=== PATIENT | female | born 1960 | race African-American/Black ===

== ENCOUNTER 2018-08-09 10:13 | Inpatient (IN) | payer MEDICAID ==
[~2018-08-09] VITALS: Ht 157.5 cm; Wt 94.8 kg
[2018-08-09 14:12] LABS: BASOPHILS % 0.8 % (0.0-2.0); EOSINOPHILS % 0.3 % (0.0-5.0); HEMATOCRIT. 40.5 % (36.0-48.0); HEMOGLOBIN. 12.8 g/dL (12.0-16.0); LYMPHOCYTES % 23.5 % (20.0-50.0); MEAN CORPUSCULAR HEMOGLOBIN 21.3 pg (28.0-32.0); MEAN CORPUSCULAR VOLUME 67.7 fL (81.0-99.0); MEAN PLATELET VOLUME 9.5 fl (7.4-10.4); MONOCYTES % 5.4 % (2.0-8.0); PLATELET 331 x1000/uL (130-400); RED BLOOD CELL COUNT 5.98 mill/uL (4.2-5.4); RED CELL DISTRIBUTION WIDTH 17.1 % (11.6-14.6)
[2018-08-09] MEDS ORDERED: SODIUM CHLORIDE 0.9% 250 ML IV ONE (14:15)
[2018-08-09 14:30] LABS: PLATELET ESTIMATE NORMAL
[2018-08-09] MEDS ORDERED: SODIUM CHLORIDE 0.9% 500 ML IV ONE (15:30)
[2018-08-09] MEDS ORDERED: LIDOCAINE HCL 1% 20ML VIAL (Pyxis) INJ ONE (15:42)
[2018-08-09] MEDS ORDERED: DOPAMINE 400MG/250ML PREMIX 250 ML IV ONE (16:15)
[2018-08-09 16:37] LABS: CHLORIDE 106 mEq/L (98-107)
[2018-08-09] MEDS ORDERED: ONDANSETRON HCL 4MG/2ML INJ IV ONE (17:45)
[2018-08-09] MEDS ORDERED: NOREPINEPHRINE 4 MG in DEXT 5% WATER 246 ML IV ONE (17:45)
[2018-08-09] MEDS ORDERED: GUAIFENESIN 200MG/10ML SUGAR FREE UDC PO PRN (19:15)
[2018-08-09] MEDS ORDERED: CLONIDINE 0.1MG TABLET PO PRN (19:15)
[2018-08-09] MEDS ORDERED: MAGNESIUM/ALUMINUM HYDROXIDE/SIMETHICONE 30ML UDC PO PRN (19:15)
[2018-08-09] MEDS ORDERED: HYDROCODONE/ACETAMINOPHEN 10/325MG TABLET PO PRN (19:15)
[2018-08-09] MEDS ORDERED: ONDANSETRON HCL 4MG/2ML INJ IV PRN (19:15)
[2018-08-09] MEDS ORDERED: DOCUSATE SODIUM 100MG CAPSULE PO PRN (19:15)
[2018-08-09] MEDS ORDERED: HYDRALAZINE 20MG/ML VIAL IV PRN (19:15)
[2018-08-09] MEDS ORDERED: IPRATROPIUM/ALBUTEROL 0.5-3(2.5)MG/3ML NEB INH PRN (19:15)
[2018-08-09] MEDS ORDERED: LORAZEPAM 2MG/ML CPJ IV PRN (19:15)
[2018-08-09] MEDS ORDERED: ACETAMINOPHEN 325MG TABLET PO PRN (19:15)
[2018-08-09] MEDS ORDERED: HYDROMORPHONE HCL/PF 2MG/ML CPJ IV PRN (19:15)
[2018-08-09] MEDS ORDERED: NOREPINEPHRINE 4MG/250ML PMX 250 ML IV NR (19:30)
[2018-08-09] MEDS ORDERED: DOPAMINE 400MG PREMIX 250ML IV PRN (21:45)
[2018-08-09] MEDS: SODIUM CHLORIDE 0.9% INJ 3ML FLUSH IVF SCH (22:00)
[2018-08-09] MEDS ORDERED: LEVOFLOXACIN 500MG PREMIX 100 ML IV NR (22:45)
[2018-08-09 23:02] LABS: CLARITY URINE CLOUDY (CLEAR); COLOR URINE YELLOW (YELLOW); KETONES URINE NEGATIVE (NEGATIVE); LEUKOCYTE ESTERASE URINE 2+ (NEGATIVE); NITRITE URINE NEGATIVE (NEGATIVE); OCCULT BLOOD URINE 2+ (NEGATIVE); PROTEIN URINE 1+ (NEGATIVE); UROBILINOGEN URINE 0.2 E.U./dL (0.2-1.0)
[2018-08-09] MEDS: ENOXAPARIN 30MG/0.3ML SYR SUBCUT SCH (23:11)
[2018-08-10] VITALS (29 sets, daily range): BP systolic 74–115; BP diastolic 20–78
[2018-08-10 00:34] LABS: CREATINE KINASE 84 IU/L (26-192)
[2018-08-10 00:35] LABS: CREATINE KINASE MB FRACTION < 1.0 ng/mL (0.5-3.6)
[2018-08-10] MEDS ORDERED: NOREPINEPHRINE 4MG/250ML PMX 250 ML IV PRN (01:00)
[2018-08-10] MEDS: SODIUM CHLORIDE 0.9% INJ 3ML FLUSH IVF SCH ×3 (06:00→22:00)
[2018-08-10 06:20] LABS: BASOPHILS % 0.5 % (0.0-2.0); EOSINOPHILS % 0.3 % (0.0-5.0); HEMATOCRIT. 42.4 % (36.0-48.0); HEMOGLOBIN. 13.4 g/dL (12.0-16.0); MEAN CORPUSCULAR HEMOGLOBIN 21.3 pg (28.0-32.0); MEAN CORPUSCULAR VOLUME 67.5 fL (81.0-99.0); MEAN PLATELET VOLUME 9.2 fl (7.4-10.4); MONOCYTES % 9.6 % (2.0-8.0); NEUTROPHILS % 65.6 % (40.0-76.0); PLATELET 300 x1000/uL (130-400); RED BLOOD CELL COUNT 6.27 mill/uL (4.2-5.4); RED CELL DISTRIBUTION WIDTH 16.9 % (11.6-14.6)
[2018-08-10 06:23] LABS: CHLORIDE 108 mEq/L (98-107)
[2018-08-10 06:34] LABS: CREATINE KINASE MB FRACTION 1.5 ng/mL (0.5-3.6); LDL CHOLESTEROL 65 mg/dL (5-100)
[2018-08-10 06:35] LABS: CREATINE KINASE 98 IU/L (26-192)
[2018-08-10 06:36] LABS: HDL CHOLESTEROL 44 mg/dL (40-59)
[2018-08-10] MEDS ORDERED: MAGNESIUM/ALUMINUM HYDROXIDE/SIMETHICONE 30ML UDC PO PRN (08:45)
[2018-08-10] MEDS ORDERED: CLONIDINE 0.1MG TABLET PO PRN (08:45)
[2018-08-10] MEDS ORDERED: HYDROCODONE/ACETAMINOPHEN 5/325MG TABLET PO PRN (08:45)
[2018-08-10] MEDS ORDERED: NA PHOS,M-B/NA PHOS,DI-BA ENEMA 118ML PR PRN (08:45)
[2018-08-10] MEDS ORDERED: HYDROMORPHONE HCL/PF 2MG/ML CPJ IV PRN (08:45)
[2018-08-10] MEDS ORDERED: ACETAMINOPHEN 325MG TABLET PO PRN (08:45)
[2018-08-10] MEDS ORDERED: ENOXAPARIN 40MG/0.4ML SYR SUBCUT SCH (08:45)
[2018-08-10] MEDS ORDERED: LORAZEPAM 2MG/ML CPJ IV PRN (08:45)
[2018-08-10] MEDS ORDERED: GUAIFENESIN 200MG/10ML SUGAR FREE UDC PO PRN (08:45)
[2018-08-10] MEDS ORDERED: ASPIRIN 81MG EC TABLET PO SCH (09:00)
[2018-08-10] MEDS ORDERED: SODIUM CHLORIDE 0.9% 1,000 ML IV SCH (09:30)
[2018-08-10] MEDS ORDERED: CLONIDINE 0.3MG TABLET PO PRN (09:30)
[2018-08-10 11:06] LABS: BG BASE EXCESS -17.5 mmol/L (-2.0-2.0); BG CARBOXYHEMOGLOBIN 0.6 % (0.5-1.5); BG DEOXYHEMOGLOBIN 3.2 % (0.0-5.0); BG FRACTION INSPIRED OXYGEN 21; BG HCO3 ACT 9.3 mmol/L (22.0-26.0); BG METHEMOGLOBIN 0.5 % (0.0-1.5); BG OXYGEN SATURATION 96.8 % (92.0-98.5); BG OXYHEMOGLOBIN 95.7 % (94.0-97.0); BG PCO2 25.7 mmHg (35.0-45.0); BG PH 7.176 (7.350-7.450); BG PO2 103.9 mmHg (75.0-100.0); BG SAMPLE SITE RIGHT BRACHIAL; BG TOTAL HEMOGLOBIN 13.1 g/dL (12.0-18.0); BG VENT MODE ROOM AIR
[2018-08-10] MEDS ORDERED: NOREPINEPHRINE 4 MG in DEXT 5% WATER 246 ML IV PRN ×2 (13:00→18:00)
[2018-08-10] MEDS ORDERED: PHENYLEPHRINE 40 MG in DEXT 5% WATER 246 ML IV PRN (13:45)
[2018-08-10] MEDS: PHENYLEPHRINE 40 MG in DEXT 5% WATER 246 ML IV PRN ×2 (15:28→18:46)
[2018-08-10] MEDS ORDERED: LIDOCAINE HCL/PF 1% 2ML VIAL ONE (15:47)
[2018-08-10 15:59] LABS: BG BASE EXCESS -14.8 mmol/L (-2.0-2.0); BG CARBOXYHEMOGLOBIN 0.4 % (0.5-1.5); BG DEOXYHEMOGLOBIN 3.4 % (0.0-5.0); BG FRACTION INSPIRED OXYGEN 21; BG HCO3 ACT 11.8 mmol/L (22.0-26.0); BG METHEMOGLOBIN 0.3 % (0.0-1.5); BG OXYGEN SATURATION 96.6 % (92.0-98.5); BG OXYHEMOGLOBIN 95.9 % (94.0-97.0); BG PCO2 30.1 mmHg (35.0-45.0); BG PO2 95.5 mmHg (75.0-100.0); BG SAMPLE SITE RIGHT BRACHIAL; BG TOTAL HEMOGLOBIN 12.8 g/dL (12.0-18.0); BG VENT MODE ROOM AIR
[2018-08-10] MEDS ORDERED: SODIUM BICARBONATE 8.4% 1 MEQ/ML 50ML SYR IV NR (16:26)
[2018-08-10] MEDS ORDERED: CARVEDILOL 3.125 MG TABLET PO SCH (17:00)
[2018-08-10] MEDS: ASPIRIN 81MG EC TABLET PO SCH (18:23)
[2018-08-10] MEDS: DOCUSATE SODIUM 100MG CAPSULE PO PRN (18:23)
[2018-08-10] MEDS ORDERED: SODIUM BICARBONATE 100 MEQ in SODIUM CHLORIDE 0.45% 1,000 ML IV SCH (18:30)
[2018-08-10] MEDS ORDERED: AMIODARONE HCL 900 MG in DEXT 5% WATER 500 ML IV SCH (18:30)
[2018-08-10] MEDS: DIPHENHYDRAMINE 50MG/ML VIAL IV PRN (19:01)
[2018-08-10] MEDS ORDERED: LEVOFLOXACIN 500MG PREMIX 100 ML IV SCH (19:15)
[2018-08-10] MEDS: AMIODARONE HCL 900 MG in DEXT 5% WATER 500 ML IV PRN (19:33)
[2018-08-10] MEDS ORDERED: PHENYLEPHRINE 80 MG in DEXT 5% WATER 500 ML IV PRN (20:00)
[2018-08-10 20:31] LABS: *AMPHETAMINES SCREEN URINE NEGATIVE (NEGATIVE); *BARBITURATES SCREEN URINE NEGATIVE (NEGATIVE); *BENZODIAZEPINES SCREEN URINE NEGATIVE (NEGATIVE); *COCAINE SCREEN URINE NEGATIVE (NEGATIVE); METHADONE URINE SCREEN NEGATIVE (NEGATIVE); OPIATES URINE SCREEN PRESUMTIVE POSITIVE (NEGATIVE); PHENCYCLIDINE URINE SCREEN NEGATIVE (NEGATIVE)
[2018-08-10 20:32] LABS: CANNABINOID URINE SCREEN NEGATIVE (NEGATIVE)
[2018-08-10] MEDS: ENOXAPARIN 30MG/0.3ML SYR SUBCUT SCH (22:45)
[2018-08-11] VITALS (94 sets, daily range): BP systolic 83–119; BP diastolic 37–79
[2018-08-11] MEDS: SODIUM BICARBONATE 100 MEQ in SODIUM CHLORIDE 0.45% 1,000 ML IV SCH ×2 (05:00→09:32)
[2018-08-11 05:44] LABS: BASOPHILS % 0.5 % (0.0-2.0); EOSINOPHILS % 0.6 % (0.0-5.0); HEMATOCRIT. 36.8 % (36.0-48.0); HEMOGLOBIN. 11.7 g/dL (12.0-16.0); LYMPHOCYTES % 34.2 % (20.0-50.0); MEAN CORPUSCULAR HEMOGLOBIN 21.2 pg (28.0-32.0); MEAN CORPUSCULAR VOLUME 66.3 fL (81.0-99.0); MEAN PLATELET VOLUME 9.2 fl (7.4-10.4); MONOCYTES % 12.8 % (2.0-8.0); NEUTROPHILS % 51.9 % (40.0-76.0); PLATELET 314 x1000/uL (130-400); RED BLOOD CELL COUNT 5.55 mill/uL (4.2-5.4); RED CELL DISTRIBUTION WIDTH 16.5 % (11.6-14.6)
[2018-08-11] MEDS: SODIUM CHLORIDE 0.9% INJ 3ML FLUSH IVF SCH ×3 (05:54→22:49)
[2018-08-11 06:24] LABS: CHLORIDE 111 mEq/L (98-107)
[2018-08-11 06:32] LABS: HDL CHOLESTEROL 45 mg/dL (40-59); LDL CHOLESTEROL 63 mg/dL (5-100)
[2018-08-11 06:33] LABS: T4 FREE 1.05 ng/dL (0.76-1.46)
[2018-08-11] MEDS ORDERED: KCL 20MEQ/100ML PREMIX 100 ML IV ONE ×2 (07:15→09:30)
[2018-08-11] MEDS: PHENYLEPHRINE 80 MG in DEXT 5% WATER 500 ML IV PRN ×3 (07:30→22:50)
[2018-08-11 08:55] LABS: BG BASE EXCESS -8.3 mmol/L (-2.0-2.0); BG DEOXYHEMOGLOBIN 3.2 % (0.0-5.0); BG HCO3 ACT 16.6 mmol/L (22.0-26.0); BG METHEMOGLOBIN 0.3 % (0.0-1.5); BG OXYGEN SATURATION 96.8 % (92.0-98.5); BG OXYHEMOGLOBIN 95.5 % (94.0-97.0); BG PCO2 32.4 mmHg (35.0-45.0); BG PH 7.328 (7.350-7.450); BG PO2 95.2 mmHg (75.0-100.0); BG SAMPLE SITE RIGHT BRACHIAL; BG TOTAL HEMOGLOBIN 12.2 g/dL (12.0-18.0); BG VENT MODE ROOM AIR
[2018-08-11] MEDS ORDERED: POTASSIUM CHLORIDE INJ 60 MEQ in DEXT 5% WATER 500 ML IV NR (09:00)
[2018-08-11] MEDS: AMIODARONE HCL 900 MG in DEXT 5% WATER 500 ML IV PRN (09:33)
[2018-08-11] MEDS: ASPIRIN 81MG EC TABLET PO SCH (09:33)
[2018-08-11] MEDS: DOCUSATE SODIUM 100MG CAPSULE PO PRN (09:33)
[2018-08-11] MEDS ORDERED: LIDOCAINE HCL/PF 1% 2ML VIAL ONE (15:46)
[2018-08-11] MEDS: ENOXAPARIN 30MG/0.3ML SYR SUBCUT SCH (22:49)
[2018-08-11] MEDS ORDERED: LEVOFLOXACIN 250MG PREMIX 50 ML IV SCH (23:00)
[2018-08-12] VITALS (96 sets, daily range): BP systolic 71–138; BP diastolic 28–79
[2018-08-12] MEDS: IPRATROPIUM/ALBUTEROL 0.5-3(2.5)MG/3ML NEB INH PRN ×2 (00:11→17:30)
[2018-08-12] MEDS: SODIUM BICARBONATE 100 MEQ in SODIUM CHLORIDE 0.45% 1,000 ML IV SCH (01:52)
[2018-08-12 05:34] LABS: BASOPHILS % 0.9 % (0.0-2.0); EOSINOPHILS % 0.9 % (0.0-5.0); HEMATOCRIT. 35.1 % (36.0-48.0); HEMOGLOBIN. 11.3 g/dL (12.0-16.0); MEAN CORPUSCULAR HEMOGLOBIN 21.1 pg (28.0-32.0); MEAN CORPUSCULAR VOLUME 65.6 fL (81.0-99.0); MEAN PLATELET VOLUME 9.3 fl (7.4-10.4); MONOCYTES % 10.5 % (2.0-8.0); NEUTROPHILS % 48.7 % (40.0-76.0); PLATELET 327 x1000/uL (130-400); RED BLOOD CELL COUNT 5.35 mill/uL (4.2-5.4); RED CELL DISTRIBUTION WIDTH 16.8 % (11.6-14.6)
[2018-08-12] MEDS: SODIUM CHLORIDE 0.9% INJ 3ML FLUSH IVF SCH ×3 (05:42→21:51)
[2018-08-12 05:44] LABS: PHOSPHORUS 1.9 mg/dL (2.5-4.9)
[2018-08-12] MEDS: PHENYLEPHRINE 80 MG in DEXT 5% WATER 500 ML IV PRN ×3 (06:23→22:43)
[2018-08-12] MEDS: DEXT 5%/0.45% NACL 1000ML 1,000 ML IV SCH ×2 (06:34→20:23)
[2018-08-12] MEDS ORDERED: POTASSIUM CHLORIDE 20MEQ TABLET SR PO SCH (07:15)
[2018-08-12] MEDS ORDERED: ASPI-1158 MT (07:25)
[2018-08-12] MEDS ORDERED: COR3 MT (07:27)
[2018-08-12] MEDS ORDERED: FURO-152 MT (07:27)
[2018-08-12] MEDS ORDERED: POTA20TA82 MT (07:30)
[2018-08-12] MEDS ORDERED: POTASSIUM PHOS,M-BASIC-D-BASIC 15 MMOL in DEXT 5% WATER 245 ML IV NR (08:00)
[2018-08-12] MEDS ORDERED: MAGNESIUM 2 G PREMIX 50 ML IV NR (08:00)
[2018-08-12] MEDS ORDERED: POTASSIUM CHLORIDE INJ 60 MEQ in DEXT 5% WATER 500 ML IV ONE (08:00)
[2018-08-12] MEDS: ASPIRIN 81MG EC TABLET PO SCH (08:20)
[2018-08-12] MEDS: DOCUSATE SODIUM 100MG CAPSULE PO PRN (08:20)
[2018-08-12] MEDS: ONDANSETRON HCL 4MG/2ML INJ IV PRN (08:43)
[2018-08-12] MEDS ORDERED: BISACODYL 5MG TABLET PO PRN (11:45)
[2018-08-12] MEDS: DIPHENHYDRAMINE 50MG/ML VIAL IV PRN (12:35)
[2018-08-12] MEDS ORDERED: LEVO25TA7 MT (14:29)
[2018-08-12] MEDS ORDERED: QUET300T2 MT (15:24)
[2018-08-12] MEDS ORDERED: SPIR25TA6 MT (15:27)
[2018-08-12] MEDS ORDERED: LINA1TAB5 MT (15:32)
[2018-08-12] MEDS ORDERED: UMEC1DIS IH (15:44)
[2018-08-12] MEDS ORDERED: FLUT15.88 BOTHNSTRLS (16:13)
[2018-08-12] MEDS ORDERED: SACU1TAB MT (16:15)
[2018-08-12] MEDS ORDERED: LEVOFLOXACIN 250MG PREMIX 50 ML IV SCH ×2 (18:00)
[2018-08-12 18:42] LABS: BG BASE EXCESS -4.9 mmol/L (-2.0-2.0); BG CARBOXYHEMOGLOBIN 0.3 % (0.5-1.5); BG FRACTION INSPIRED OXYGEN 21; BG METHEMOGLOBIN 0.2 % (0.0-1.5); BG OXYHEMOGLOBIN 95.5 % (94.0-97.0); BG PCO2 31.8 mmHg (35.0-45.0); BG PH 7.395 (7.350-7.450); BG PO2 88.2 mmHg (75.0-100.0); BG SAMPLE SITE RIGHT BRACHIAL; BG TOTAL HEMOGLOBIN 11.4 g/dL (12.0-18.0); BG VENT MODE ROOM AIR
[2018-08-12] MEDS: ENOXAPARIN 30MG/0.3ML SYR SUBCUT SCH (20:23)
[2018-08-12] MEDS: IPRATROPIUM/ALBUTEROL 0.5-3(2.5)MG/3ML NEB HHN SCH (20:28)
[2018-08-12] MEDS: BUDESONIDE 0.5MG/2ML NEB HHN SCH (20:28)
[2018-08-12] MEDS ORDERED: POTASSIUM CHLORIDE INJ 40 MEQ in DEXT 5% WATER 250 ML IV NR (21:00)
[2018-08-12] MEDS ORDERED: AMIODARONE HCL 450 MG in DEXT 5% WATER 241 ML IV PRN (22:15)
[2018-08-12] MEDS ORDERED: WATER IV PRN (22:15)
[2018-08-12] MEDS ORDERED: DEXT 5% IV PRN (22:15)
[2018-08-12] MEDS ORDERED: AMIODARONE HCL IV PRN (22:15)
[2018-08-13] VITALS (75 sets, daily range): BP systolic 66–130; BP diastolic 43–87
[2018-08-13] MEDS: IPRATROPIUM/ALBUTEROL 0.5-3(2.5)MG/3ML NEB HHN SCH ×3 (01:07→20:27)
[2018-08-13] MEDS: PHENYLEPHRINE 80 MG in DEXT 5% WATER 500 ML IV PRN ×2 (05:33→13:56)
[2018-08-13 05:46] LABS: BASOPHILS % 0.6 % (0.0-2.0); EOSINOPHILS % 0.2 % (0.0-5.0); HEMATOCRIT. 37.2 % (36.0-48.0); HEMOGLOBIN. 11.6 g/dL (12.0-16.0); LYMPHOCYTES % 36.6 % (20.0-50.0); MEAN CORPUSCULAR HEMOGLOBIN 21.1 pg (28.0-32.0); MEAN CORPUSCULAR VOLUME 67.3 fL (81.0-99.0); MEAN PLATELET VOLUME 9.3 fl (7.4-10.4); MONOCYTES % 10.3 % (2.0-8.0); NEUTROPHILS % 52.3 % (40.0-76.0); PLATELET 297 x1000/uL (130-400); RED BLOOD CELL COUNT 5.53 mill/uL (4.2-5.4); RED CELL DISTRIBUTION WIDTH 16.8 % (11.6-14.6)
[2018-08-13] MEDS: SODIUM CHLORIDE 0.9% INJ 3ML FLUSH IVF SCH ×2 (06:05→14:00)
[2018-08-13] MEDS: BUDESONIDE 0.5MG/2ML NEB HHN SCH ×2 (07:33→20:27)
[2018-08-13] MEDS ORDERED: BARIUM SULFATE 450ML ORAL SUSP PO SCH (08:30)
[2018-08-13] MEDS ORDERED: DIATR MEGLU/DIATRIZOATE SOLN 30ML PO SCH (08:30)
[2018-08-13] MEDS: ONDANSETRON HCL 4MG/2ML INJ IV PRN (08:39)
[2018-08-13] MEDS: AMIODARONE HCL 200 MG TABLET PO SCH ×3 (08:39→17:06)
[2018-08-13] MEDS: ASPIRIN 81MG EC TABLET PO SCH (08:40)
[2018-08-13] MEDS: DOCUSATE SODIUM 100MG CAPSULE PO PRN (08:40)
[2018-08-13] MEDS: ENOXAPARIN 30MG/0.3ML SYR SUBCUT SCH ×2 (08:40→21:03)
[2018-08-13] MEDS: PIPERACILLIN/TAZ 2.25G PREMIX 50 ML IV SCH ×2 (10:30→17:55)
[2018-08-13] MEDS ORDERED: VANCOMYCIN 2,000 MG in DEXT 5% WATER 500 ML IV SCH (11:00)
[2018-08-13] MEDS ORDERED: FUROSEMIDE 40MG/4ML VIAL IVP NR (12:00)
[2018-08-13] MEDS: DEXT 5%/0.45% NACL 1000ML 1,000 ML IV SCH (17:54)
[2018-08-14] VITALS (63 sets, daily range): BP systolic 74–155; BP diastolic 38–109
[2018-08-14] MEDS: PIPERACILLIN/TAZ 2.25G PREMIX 50 ML IV SCH ×5 (00:14→23:16)
[2018-08-14] MEDS: IPRATROPIUM/ALBUTEROL 0.5-3(2.5)MG/3ML NEB HHN SCH ×3 (01:17→12:00)
[2018-08-14 05:31] LABS: BASOPHILS % 0.5 % (0.0-2.0); EOSINOPHILS % 0.2 % (0.0-5.0); HEMATOCRIT. 34.1 % (36.0-48.0); HEMOGLOBIN. 10.8 g/dL (12.0-16.0); LYMPHOCYTES % 26.9 % (20.0-50.0); MEAN CORPUSCULAR HEMOGLOBIN 21.1 pg (28.0-32.0); MEAN CORPUSCULAR VOLUME 66.4 fL (81.0-99.0); MEAN PLATELET VOLUME 8.9 fl (7.4-10.4); MONOCYTES % 13.9 % (2.0-8.0); NEUTROPHILS % 58.5 % (40.0-76.0); PLATELET 264 x1000/uL (130-400); RED BLOOD CELL COUNT 5.14 mill/uL (4.2-5.4); RED CELL DISTRIBUTION WIDTH 16.1 % (11.6-14.6)
[2018-08-14 08:29] LABS: PHOSPHORUS 3.5 mg/dL (2.5-4.9)
[2018-08-14] MEDS: ASPIRIN 81MG EC TABLET PO SCH (08:35)
[2018-08-14] MEDS: ENOXAPARIN 30MG/0.3ML SYR SUBCUT SCH (08:35)
[2018-08-14] MEDS: AMIODARONE HCL 200 MG TABLET PO SCH (08:35)
[2018-08-14] MEDS ORDERED: POTASSIUM CHLORIDE 20MEQ TABLET SR PO SCH (09:45)
[2018-08-14] MEDS ORDERED: MAGNESIUM 1 G PREMIX 100 ML IV SCH (09:45)
[2018-08-14] MEDS ORDERED: MAGNESIUM 1 G PREMIX 100 ML IV ONE (10:28)
[2018-08-14] MEDS ORDERED: VANCOMYCIN 750 MG PREMIX 150 ML IV SCH (12:00)
[2018-08-14] MEDS ORDERED: SODIUM CHLORIDE 0.9% 500 ML IV ONE (12:00)
[2018-08-14] MEDS ORDERED: ALBUMIN HUMAN 12.5GM/50ML (25%) IV NR (12:30)
[2018-08-14 13:04] LABS: HEPATITIS B SURFACE ANTIGEN NEGATIVE
[2018-08-14] MEDS: ANORO ELLIPTA ORI SCH ×2 (13:11→21:07)
[2018-08-14 13:34] LABS: HEPATITIS A AB IGM NEGATIVE (NEGATIVE)
[2018-08-14] MEDS: PHENYLEPHRINE 80 MG in DEXT 5% WATER 500 ML IV PRN (14:58)
[2018-08-14] MEDS: DEXT 5%/0.45% NACL 1000ML 1,000 ML IV SCH (16:07)
[2018-08-14] MEDS: ONDANSETRON HCL 4MG/2ML INJ IV PRN (21:04)
[2018-08-15] VITALS (56 sets, daily range): BP systolic 82–125; BP diastolic 27–92
[2018-08-15] MEDS: PIPERACILLIN/TAZ 2.25G PREMIX 50 ML IV SCH ×4 (05:07→23:11)
[2018-08-15] MEDS: DEXT 5%/0.45% NACL 1000ML 1,000 ML IV SCH ×3 (05:07→19:23)
[2018-08-15 06:06] LABS: BASOPHILS % 0.2 % (0.0-2.0); EOSINOPHILS % 0.1 % (0.0-5.0); HEMATOCRIT. 31.7 % (36.0-48.0); LYMPHOCYTES % 22.9 % (20.0-50.0); MEAN CORPUSCULAR HEMOGLOBIN 21.1 pg (28.0-32.0); MEAN CORPUSCULAR VOLUME 66.8 fL (81.0-99.0); MEAN PLATELET VOLUME 9.4 fl (7.4-10.4); NEUTROPHILS % 64.8 % (40.0-76.0); PLATELET 152 x1000/uL (130-400); RED BLOOD CELL COUNT 4.74 mill/uL (4.2-5.4)
[2018-08-15 06:31] LABS: PHOSPHORUS 3.8 mg/dL (2.5-4.9)
[2018-08-15] MEDS: ASPIRIN 81MG EC TABLET PO SCH (08:04)
[2018-08-15] MEDS: ENOXAPARIN 40MG/0.4ML SYR SUBCUT SCH (08:09)
[2018-08-15] MEDS: ANORO ELLIPTA ORI SCH ×2 (08:10→20:44)
[2018-08-15] MEDS: IPRATROPIUM/ALBUTEROL 0.5-3(2.5)MG/3ML NEB HHN SCH ×3 (08:31→20:46)
[2018-08-15] MEDS ORDERED: VANCOMYCIN 2,000 MG in DEXT 5% WATER 500 ML IV NR (10:00)
[2018-08-15] MEDS: ONDANSETRON HCL 4MG/2ML INJ IV PRN (12:11)
[2018-08-15] MEDS: LACTULOSE 20G/30ML UDC PO SCH (16:35)
[2018-08-15] MEDS: SODIUM CHLORIDE 0.9% INJ 3ML FLUSH IVF SCH (21:29)
[2018-08-16] VITALS (43 sets, daily range): BP systolic 82–124; BP diastolic 42–87
[2018-08-16] MEDS: IPRATROPIUM/ALBUTEROL 0.5-3(2.5)MG/3ML NEB HHN SCH ×4 (02:41→20:37)
[2018-08-16] MEDS: PIPERACILLIN/TAZ 2.25G PREMIX 50 ML IV SCH ×4 (05:07→23:11)
[2018-08-16] MEDS: SODIUM CHLORIDE 0.9% INJ 3ML FLUSH IVF SCH ×3 (05:07→21:34)
[2018-08-16 05:36] LABS: BASOPHILS % 0.3 % (0.0-2.0); EOSINOPHILS % 0.2 % (0.0-5.0); HEMATOCRIT. 29.4 % (36.0-48.0); HEMOGLOBIN. 9.4 g/dL (12.0-16.0); LYMPHOCYTES % 18.1 % (20.0-50.0); MEAN CORPUSCULAR HEMOGLOBIN 21.4 pg (28.0-32.0); MEAN CORPUSCULAR VOLUME 67.2 fL (81.0-99.0); MEAN PLATELET VOLUME 9.7 fl (7.4-10.4); MONOCYTES % 10.6 % (2.0-8.0); NEUTROPHILS % 70.8 % (40.0-76.0); PLATELET 128 x1000/uL (130-400); RED BLOOD CELL COUNT 4.38 mill/uL (4.2-5.4); RED CELL DISTRIBUTION WIDTH 16.2 % (11.6-14.6)
[2018-08-16] MEDS ORDERED: POTASSIUM CHLORIDE 20MEQ/PACKET PO NR (07:45)
[2018-08-16] MEDS: LACTULOSE 20G/30ML UDC PO SCH ×2 (08:21→17:00)
[2018-08-16] MEDS: ANORO ELLIPTA ORI SCH ×2 (08:27→20:33)
[2018-08-16] MEDS: ENOXAPARIN 40MG/0.4ML SYR SUBCUT SCH (08:33)
[2018-08-16] MEDS: ASPIRIN 81MG EC TABLET PO SCH (08:33)
[2018-08-16] MEDS: DEXT 5%/0.45% NACL 1000ML 1,000 ML IV SCH (17:03)
[2018-08-16] MEDS: FAMOTIDINE 20MG TABLET PO SCH (20:31)
[2018-08-16] MEDS ORDERED: VANCOMYCIN 1 G PREMIX 200 ML IV SCH (21:00)
[2018-08-17] VITALS (34 sets, daily range): BP systolic 87–117; BP diastolic 32–78
[2018-08-17] MEDS: IPRATROPIUM/ALBUTEROL 0.5-3(2.5)MG/3ML NEB HHN SCH ×4 (01:22→20:56)
[2018-08-17] MEDS: PIPERACILLIN/TAZ 2.25G PREMIX 50 ML IV SCH ×2 (05:05→11:32)
[2018-08-17] MEDS: SODIUM CHLORIDE 0.9% INJ 3ML FLUSH IVF SCH ×3 (05:05→21:43)
[2018-08-17 06:41] LABS: BASOPHILS % 0.5 % (0.0-2.0); EOSINOPHILS % 0.2 % (0.0-5.0); HEMATOCRIT. 29.5 % (36.0-48.0); HEMOGLOBIN. 9.3 g/dL (12.0-16.0); LYMPHOCYTES % 21.7 % (20.0-50.0); MEAN CORPUSCULAR HEMOGLOBIN 21.3 pg (28.0-32.0); MEAN CORPUSCULAR VOLUME 67.6 fL (81.0-99.0); MEAN PLATELET VOLUME 9.3 fl (7.4-10.4); MONOCYTES % 11.1 % (2.0-8.0); NEUTROPHILS % 66.5 % (40.0-76.0); PLATELET 158 x1000/uL (130-400); RED BLOOD CELL COUNT 4.37 mill/uL (4.2-5.4); RED CELL DISTRIBUTION WIDTH 16.4 % (11.6-14.6)
[2018-08-17 07:10] LABS: PHOSPHORUS 2.9 mg/dL (2.5-4.9)
[2018-08-17] MEDS: ASPIRIN 81MG EC TABLET PO SCH (08:34)
[2018-08-17] MEDS: ENOXAPARIN 40MG/0.4ML SYR SUBCUT SCH (08:34)
[2018-08-17] MEDS: ANORO ELLIPTA ORI SCH ×2 (08:34→21:43)
[2018-08-17] MEDS: LACTULOSE 20G/30ML UDC PO SCH (08:42)
[2018-08-17] MEDS ORDERED: ACETYLCYSTEINE 200MG/ML 20% VIAL 4ML PO NR (10:00)
[2018-08-17] MEDS ORDERED: SODIUM CHLORIDE 0.9% 500 ML IV NR (11:15)
[2018-08-17] MEDS: GUAIFENESIN 600MG ER TABLET PO SCH (11:32)
[2018-08-17] MEDS ORDERED: DRONABINOL 2.5MG CAPSULE PO SCH (12:00)
[2018-08-17] MEDS: ALPRAZOLAM 0.5 MG TABLET PO SCH ×2 (12:32→21:43)
[2018-08-17] MEDS ORDERED: ACETYLCYSTEINE 100MG/ML 10% VIAL 4ML INH SCH (14:00)
[2018-08-17] MEDS: VANCOMYCIN 1 G PREMIX 200 ML IV SCH (14:04)
[2018-08-17] MEDS: IPRATROPIUM/ALBUTEROL 0.5-3(2.5)MG/3ML NEB INH PRN (15:43)
[2018-08-17] MEDS ORDERED: PIPERACILLIN/TAZ 3.375G PREMIX 50 ML IV SCH (18:00)
[2018-08-17] MEDS: FAMOTIDINE 20MG TABLET PO SCH (21:42)
[2018-08-18] VITALS: BP 100/68
[2018-08-18] MEDS: IPRATROPIUM/ALBUTEROL 0.5-3(2.5)MG/3ML NEB HHN SCH ×2 (01:17→07:39)
[2018-08-18 04:00] VITALS: BP 103/65
[2018-08-18] MEDS: ALPRAZOLAM 0.5 MG TABLET PO SCH (04:55)
[2018-08-18] MEDS ORDERED: PIPERACILLIN/TAZ 3.375G PREMIX 50 ML IV SCH (05:00)
[2018-08-18] MEDS: SODIUM CHLORIDE 0.9% INJ 3ML FLUSH IVF SCH (05:14)
[2018-08-18] MEDS: VANCOMYCIN 1 G PREMIX 200 ML IV SCH (08:51)
[2018-08-18] MEDS: ENOXAPARIN 40MG/0.4ML SYR SUBCUT SCH (08:52)
[2018-08-18] MEDS: ANORO ELLIPTA ORI SCH (08:52)
[2018-08-18] MEDS: GUAIFENESIN 600MG ER TABLET PO SCH (08:53)
[2018-08-18] MEDS: ASPIRIN 81MG EC TABLET PO SCH (08:53)
[2018-08-18 10:46] VITALS: BP 104/68
[2018-08-18 11:53] VITALS: BP 96/70
[2018-08-18 12:00] VITALS: BP 96/70
[2018-08-18 12:15] VITALS: BP 104/68
== END 2018-08-18 11:55 | disposition home or self-care (01) | DRG 720 ==
LOC: ER 10:32 → 7WST 17:50 → EDBEDREQTM 18:02 → EDBEDREQ 18:02 → MICUSO 08-10 13:45 → UNDOADMIN 08-10 13:45 → ENRESERV 08-10 16:15 → MICUSO 08-10 17:20 → ORIP 08-10 17:20 → 7WST 08-10 17:55 → MICUSO 08-10 18:02 → 8WST 08-17 16:22
PROVIDERS: ADMIT Internal Medicine; ATTEND Internal Medicine
PROC: 02HV33Z Insertion of Infusion Device into Superior Vena Cava, Percutaneous Approach (ICD-10-PCS; 2018-08-09)
PROC: B548ZZA Ultrasonography of Superior Vena Cava, Guidance (ICD-10-PCS; 2018-08-09)
PROC: 5A09357 Assistance with Respiratory Ventilation, Less than 24 Consecutive Hours, Continuous Positive Airway Pressure (ICD-10-PCS; principal; 2018-08-12)
PROC: 5A09357 Assistance with Respiratory Ventilation, Less than 24 Consecutive Hours, Continuous Positive Airway Pressure (ICD-10-PCS; 2018-08-13)
PROC: 5A09357 Assistance with Respiratory Ventilation, Less than 24 Consecutive Hours, Continuous Positive Airway Pressure (ICD-10-PCS; 2018-08-14)
PROC: 5A09357 Assistance with Respiratory Ventilation, Less than 24 Consecutive Hours, Continuous Positive Airway Pressure (ICD-10-PCS; 2018-08-16)
PROC: 5A09357 Assistance with Respiratory Ventilation, Less than 24 Consecutive Hours, Continuous Positive Airway Pressure (ICD-10-PCS; 2018-08-17)
DX: A41.02 Sepsis due to Methicillin resistant Staphylococcus aureus (principal); J96.00 Acute respiratory failure, unspecified whether with hypoxia or hypercapnia; I49.01 Ventricular fibrillation; K72.00 Acute and subacute hepatic failure without coma; N17.0 Acute kidney failure with tubular necrosis; E83.39 Other disorders of phosphorus metabolism; I42.0 Dilated cardiomyopathy; R65.21 Severe sepsis with septic shock; R57.1 Hypovolemic shock; E87.1 Hypo-osmolality and hyponatremia; I13.0 Hypertensive heart and chronic kidney disease with heart failure and stage 1 through stage 4 chronic kidney disease, or unspecified chronic kidney disease; N39.0 Urinary tract infection, site not specified; E87.6 Hypokalemia; E11.22 Type 2 diabetes mellitus with diabetic chronic kidney disease; D50.9 Iron deficiency anemia, unspecified; E11.21 Type 2 diabetes mellitus with diabetic nephropathy; E46 Unspecified protein-calorie malnutrition; E66.2 Morbid (severe) obesity with alveolar hypoventilation; E83.42 Hypomagnesemia; I25.10 Atherosclerotic heart disease of native coronary artery without angina pectoris; I34.0 Nonrheumatic mitral (valve) insufficiency; I50.20 Unspecified systolic (congestive) heart failure; N18.1 Chronic kidney disease, stage 1; Z79.84 Long term (current) use of oral hypoglycemic drugs; Z79.899 Other long term (current) drug therapy; Z82.49 Family history of ischemic heart disease and other diseases of the circulatory system; I25.2 Old myocardial infarction; Z85.41 Personal history of malignant neoplasm of cervix uteri; Z90.49 Acquired absence of other specified parts of digestive tract; Z90.710 Acquired absence of both cervix and uterus; Z95.810 Presence of automatic (implantable) cardiac defibrillator; Z68.38 Body mass index [BMI] 38.0-38.9, adult; Z79.82 Long term (current) use of aspirin; T50.8X1A Poisoning by diagnostic agents, accidental (unintentional), initial encounter; N14.4 Toxic nephropathy, not elsewhere classified
CPT/HCPCS: 36415; 36569; 36600; 71045; 71250; 74018; 76700; 76937; 78227; 78580; 80048; 80061; 80076; 80202; 80305; 82140; 82248; 82375; 82550; 82553; 82805; 82962; 83036; 83605; 83735; 84100; 84132; 84439; 84443; 84484; 86705; 86709; 86803; 87015; 87045; 87077; 87340; 87427; 87449; 93005; 93306; 93970; 94640; 96365; 96366; 96367; 96368; 96375; 97110; 97116; 97162; 97166; 97167; 97530; 97535; 99291; A9537; C1725; J0282; J1200; J1265; J1650; J1940; J1956; J2370; J2405; J2543; J3370; J3475; J3480; J3490; J7040; J7050; J7060; J7608; J7620; J7626; P9047; Q0167

== ENCOUNTER 2019-10-30 15:48 | Inpatient (IN) | payer MEDICAID ==
[~2019-10-30] VITALS: Ht 157.5 cm; Wt 65.8 kg
[~2019-10-30 15:48] MED LIST: ASPI-1158 MT; COR3 MT; FLUT15.844 BOTHNSTRLS; FURO-152 MT; LEVO25TA7 MT; LINA1TAB5 MT; POTA20TA82 MT; QUET300T2 MT; SACU1TAB MT; SPIR25TA6 MT; UMEC1DIS IH
[2019-10-30 19:26] LABS: HEMATOCRIT. 38.4 % (36.0-48.0); HEMOGLOBIN. 12.3 g/dL (12.0-16.0); MEAN CORPUSCULAR HEMOGLOBIN 22.6 pg (28.0-32.0); MEAN CORPUSCULAR VOLUME 70.4 fL (81.0-99.0); MEAN PLATELET VOLUME 10.5 fl (7.4-10.4); PLATELET 214 x1000/uL (130-400); RED BLOOD CELL COUNT 5.45 mill/uL (4.2-5.4); RED CELL DISTRIBUTION WIDTH 16.7 % (11.6-14.6)
[2019-10-30 19:31] LABS: CHLORIDE 97 mEq/L (98-107)
[2019-10-30 19:32] LABS: CLARITY URINE CLEAR (CLEAR); COLOR URINE DARK YELLOW (YELLOW); INR 1.2; KETONES URINE TRACE (NEGATIVE); LEUKOCYTE ESTERASE URINE NEGATIVE (NEGATIVE); NITRITE URINE NEGATIVE (NEGATIVE); OCCULT BLOOD URINE NEGATIVE (NEGATIVE); PROTEIN URINE 1+ (NEGATIVE); PROTHROMBIN TIME 12.7 sec (9.6-11.0); SPECIFIC GRAVITY URINE 1.015 (1.005-1.030)
[2019-10-30 19:35] LABS: ETHANOL BLOOD < 10 mg/dL
[2019-10-30 19:37] LABS: PHOSPHORUS 2.2 mg/dL (2.5-4.9)
[2019-10-30 19:42] LABS: PLATELET ESTIMATE NORMAL
[2019-10-30] MEDS ORDERED: POTASSIUM CHLORIDE 20MEQ TABLET SR PO ONE (20:30)
[2019-10-30 20:33] LABS: *AMPHETAMINES SCREEN URINE NEGATIVE (NEGATIVE); *BARBITURATES SCREEN URINE NEGATIVE (NEGATIVE)
[2019-10-30 20:34] LABS: *BENZODIAZEPINES SCREEN URINE NEGATIVE (NEGATIVE); *COCAINE SCREEN URINE NEGATIVE (NEGATIVE); CANNABINOID URINE SCREEN NEGATIVE (NEGATIVE); METHADONE URINE SCREEN NEGATIVE (NEGATIVE); OPIATES URINE SCREEN PRESUMTIVE POSITIVE (NEGATIVE); PHENCYCLIDINE URINE SCREEN NEGATIVE (NEGATIVE)
[2019-10-30] MEDS ORDERED: MORPHINE SULFATE 4 MG/ML CPJ (NOT FOR IM USE) IV ONE (23:30)
[2019-10-30] MEDS ORDERED: ONDANSETRON HCL 4MG/2ML INJ IV ONE (23:30)
[2019-10-31] VITALS (7 sets, daily range): BP systolic 81–91; BP diastolic 55–67
[2019-10-31] MEDS ORDERED: DEXTROSE 50% WATER 50ML SYRINGE IV PRN (02:30)
[2019-10-31] MEDS ORDERED: ONDANSETRON HCL 4MG/2ML INJ IV PRN (02:30)
[2019-10-31] MEDS ORDERED: MORPHINE SULFATE 2 MG/ML CPJ (NOT FOR IM USE) IV PRN (02:30)
[2019-10-31] MEDS ORDERED: POTA10CA42 MT (03:14)
[2019-10-31] MEDS ORDERED: LEVO50TA8 MT (03:14)
[2019-10-31] MEDS ORDERED: CYCL10TA7 MT (03:14)
[2019-10-31] MEDS ORDERED: CYCL25PO21 MT (03:14)
[2019-10-31] MEDS ORDERED: QUET300T2 MT (03:14)
[2019-10-31] MEDS ORDERED: SACU1TAB7 MT (03:14)
[2019-10-31] MEDS ORDERED: LACT10SO30 MT (03:14)
[2019-10-31] MEDS ORDERED: IPRA3AMP9 HHN (03:14)
[2019-10-31] MEDS ORDERED: FURO-151 MT (03:14)
[2019-10-31] MEDS ORDERED: FERR325T6 MT (03:14)
[2019-10-31] MEDS ORDERED: PRAV40TA58 MT (03:14)
[2019-10-31] MEDS ORDERED: SERT100T MT (03:14)
[2019-10-31] MEDS ORDERED: IPRATROPIUM/ALBUTEROL 0.5-3(2.5)MG/3ML NEB HHN PRN (05:30)
[2019-10-31] MEDS: LEVOTHYROXINE SODIUM 50MCG TABLET PO SCH (06:47)
[2019-10-31] MEDS: BLOOD SUGAR DIAGNOSTIC STRIP TEST SCH ×4 (06:48→20:31)
[2019-10-31 07:12] LABS: HEMATOCRIT. 32.5 % (36.0-48.0); HEMOGLOBIN. 10.6 g/dL (12.0-16.0); MEAN CORPUSCULAR HEMOGLOBIN 22.8 pg (28.0-32.0); MEAN CORPUSCULAR VOLUME 69.9 fL (81.0-99.0); MEAN PLATELET VOLUME 10.8 fl (7.4-10.4); PLATELET 192 x1000/uL (130-400); RED BLOOD CELL COUNT 4.65 mill/uL (4.2-5.4); RED CELL DISTRIBUTION WIDTH 16.6 % (11.6-14.6)
[2019-10-31] MEDS: INSULIN LISPRO 100 UNITS/ML SUBCUT SCH ×4 (07:50→20:31)
[2019-10-31] MEDS ORDERED: PNEUMOCOCCAL 23-VAL P-SAC VAC 0.5 ML IM ONE (08:00)
[2019-10-31] MEDS: CARVEDILOL 3.125 MG TABLET PO SCH ×2 (09:00→20:17)
[2019-10-31] MEDS: FUROSEMIDE 40MG TABLET PO SCH ×2 (09:00→17:00)
[2019-10-31] MEDS ORDERED: POTASSIUM CHLORIDE INJ 60 MEQ in DEXT 5% WATER 500 ML IV NR (09:00)
[2019-10-31] MEDS: SPIRONOLACTONE 25MG TABLET PO SCH (09:00)
[2019-10-31] MEDS ORDERED: POTASSIUM CHLORIDE 10MEQ TABLET SR PO SCH ×2 (09:00→09:18)
[2019-10-31] MEDS: FERROUS SULFATE 325MG TABLET PO SCH ×2 (09:14→17:05)
[2019-10-31] MEDS: ASPIRIN 81MG EC TABLET PO SCH (09:14)
[2019-10-31] MEDS: DOCUSATE SODIUM 250MG CAPSULE PO SCH ×2 (09:15→17:26)
[2019-10-31] MEDS: SERTRALINE HCL 100MG TABLET PO SCH ×2 (09:16→17:05)
[2019-10-31] MEDS: QUETIAPINE FUMARATE 50MG TABLET PO SCH ×3 (09:17→21:33)
[2019-10-31] MEDS: SACUBITRIL/VALSARTAN 49MG/51MG TABLET PO SCH ×2 (09:18→17:05)
[2019-10-31] MEDS: ENOXAPARIN 40MG/0.4ML SYR SUBCUT SCH (09:25)
[2019-10-31] MEDS ORDERED: POTASSIUM CHLORIDE 20MEQ TABLET SR PO NR (10:45)
[2019-10-31] MEDS ORDERED: LACTULOSE 20G/30ML UDC PO NR (15:15)
[2019-10-31 15:37] LABS: CHLORIDE 99 mEq/L (98-107)
[2019-10-31] MEDS: POTASSIUM CHLORIDE 20MEQ TABLET SR PO SCH ×2 (17:06→20:17)
[2019-10-31] MEDS: MINERAL OIL ENEMA 133ML PR NR (18:00)
[2019-10-31 20:17] LABS: PLATELET ESTIMATE NORMAL
[2019-10-31] MEDS: ATORVASTATIN CALCIUM 10MG TABLET PO SCH (20:18)
[2019-11-01] VITALS (7 sets, daily range): BP systolic 79–131; BP diastolic 43–102
[2019-11-01 07:31] LABS: HEMATOCRIT. 34.3 % (36.0-48.0); HEMOGLOBIN. 11.3 g/dL (12.0-16.0); MEAN CORPUSCULAR HEMOGLOBIN 22.9 pg (28.0-32.0); MEAN CORPUSCULAR VOLUME 69.4 fL (81.0-99.0); MEAN PLATELET VOLUME 11.3 fl (7.4-10.4); PLATELET 193 x1000/uL (130-400); RED BLOOD CELL COUNT 4.94 mill/uL (4.2-5.4); RED CELL DISTRIBUTION WIDTH 16.5 % (11.6-14.6)
[2019-11-01 07:41] LABS: CHLORIDE 101 mEq/L (98-107)
[2019-11-01 07:50] LABS: TOTAL IRON BINDING CAPACITY 196 ug/dL (250-450)
[2019-11-01] MEDS: INSULIN LISPRO 100 UNITS/ML SUBCUT SCH ×4 (07:50→21:00)
[2019-11-01] MEDS: BLOOD SUGAR DIAGNOSTIC STRIP TEST SCH ×4 (08:01→21:14)
[2019-11-01] MEDS: SPIRONOLACTONE 25MG TABLET PO SCH (09:00)
[2019-11-01] MEDS: FUROSEMIDE 40MG TABLET PO SCH ×2 (09:00→17:00)
[2019-11-01] MEDS: CARVEDILOL 3.125 MG TABLET PO SCH (09:00)
[2019-11-01] MEDS: SERTRALINE HCL 100MG TABLET PO SCH ×2 (09:00→17:00)
[2019-11-01] MEDS: ASPIRIN 81MG EC TABLET PO SCH (09:27)
[2019-11-01] MEDS: DOCUSATE SODIUM 250MG CAPSULE PO SCH ×2 (09:27→18:07)
[2019-11-01] MEDS: POLYETHYLENE GLYCOL 3350 (17GM) 1 DOSE PACK PO SCH (09:28)
[2019-11-01] MEDS: SACUBITRIL/VALSARTAN 49MG/51MG TABLET PO SCH (09:30)
[2019-11-01] MEDS: FERROUS SULFATE 325MG TABLET PO SCH ×2 (10:33→18:07)
[2019-11-01] MEDS: POTASSIUM CHLORIDE 20MEQ TABLET SR PO SCH (10:34)
[2019-11-01] MEDS: ENOXAPARIN 40MG/0.4ML SYR SUBCUT SCH (10:37)
[2019-11-01] MEDS: LEVOTHYROXINE SODIUM 50MCG TABLET PO SCH (10:41)
[2019-11-01 11:30] LABS: PLATELET ESTIMATE NORMAL
[2019-11-01] MEDS ORDERED: MIDODRINE HCL 2.5MG TABLET PO SCH (13:00)
[2019-11-01] MEDS: MINERAL OIL ENEMA 133ML PR NR (14:53)
[2019-11-01] MEDS ORDERED: MINERAL OIL ENEMA 133ML PR NR (15:00)
[2019-11-01] MEDS: QUETIAPINE FUMARATE 50MG TABLET PO SCH (18:08)
[2019-11-01] MEDS: ATORVASTATIN CALCIUM 10MG TABLET PO SCH (20:58)
[2019-11-01] MEDS: MIDODRINE HCL 2.5MG TABLET PO SCH (21:05)
[2019-11-02] VITALS: BP 105/71
[2019-11-02 04:00] VITALS: BP 87/56
[2019-11-02] MEDS: MIDODRINE HCL 2.5MG TABLET PO SCH ×2 (05:27→14:09)
[2019-11-02 06:00] VITALS: BP 87/56
[2019-11-02 06:11] LABS: HEMATOCRIT. 33.2 % (36.0-48.0); HEMOGLOBIN. 10.7 g/dL (12.0-16.0); MEAN CORPUSCULAR HEMOGLOBIN 22.5 pg (28.0-32.0); MEAN CORPUSCULAR VOLUME 69.7 fL (81.0-99.0); MEAN PLATELET VOLUME 11.2 fl (7.4-10.4); PLATELET 186 x1000/uL (130-400); RED BLOOD CELL COUNT 4.76 mill/uL (4.2-5.4)
[2019-11-02] MEDS: INSULIN LISPRO 100 UNITS/ML SUBCUT SCH ×2 (07:43→12:14)
[2019-11-02] MEDS: BLOOD SUGAR DIAGNOSTIC STRIP TEST SCH ×2 (07:43→12:14)
[2019-11-02 08:00] VITALS: BP 94/70
[2019-11-02] MEDS: SPIRONOLACTONE 25MG TABLET PO SCH (09:00)
[2019-11-02] MEDS: SERTRALINE HCL 100MG TABLET PO SCH (09:00)
[2019-11-02] MEDS: ENOXAPARIN 40MG/0.4ML SYR SUBCUT SCH (10:00)
[2019-11-02] MEDS: FERROUS SULFATE 325MG TABLET PO SCH (10:01)
[2019-11-02] MEDS: LEVOTHYROXINE SODIUM 50MCG TABLET PO SCH (10:01)
[2019-11-02] MEDS: POLYETHYLENE GLYCOL 3350 (17GM) 1 DOSE PACK PO SCH (10:01)
[2019-11-02] MEDS: FUROSEMIDE 40MG TABLET PO SCH (10:01)
[2019-11-02] MEDS: DOCUSATE SODIUM 250MG CAPSULE PO SCH (10:01)
[2019-11-02] MEDS: QUETIAPINE FUMARATE 50MG TABLET PO SCH (10:01)
[2019-11-02] MEDS: POTASSIUM CHLORIDE 20MEQ TABLET SR PO SCH (10:01)
[2019-11-02] MEDS: ASPIRIN 81MG EC TABLET PO SCH (10:01)
[2019-11-02] MEDS ORDERED: MAGNESIUM OXIDE 400MG TABLET PO SCH (12:30)
[2019-11-02] MEDS ORDERED: POTASSIUM CHLORIDE 20MEQ TABLET SR PO SCH (14:15)
[2019-11-02 15:15] LABS: PLATELET ESTIMATE NORMAL
[2019-11-02 15:30] VITALS: BP 86/65
[2019-12-04] MEDS ORDERED: CYCL10TA7 PO (14:10)
[2019-12-04] MEDS ORDERED: ERGO500013 PO (14:10)
[2019-12-04] MEDS ORDERED: QUET300T2 PO (14:10)
[2019-12-06] MEDS ORDERED: FURO20TA4 PO (10:53)
[2019-12-06] MEDS ORDERED: CALC-25 PO (11:00)
[2019-12-06] MEDS ORDERED: LEVO25TA7 PO ×2 (11:00)
[2019-12-06] MEDS ORDERED: CITR473S4 PO (11:07)
[2019-12-06] MEDS ORDERED: ALBU18HF2 IH (11:19)
[2019-12-06] MEDS ORDERED: IPRA3AMP9 HHN (11:20)
== END 2019-11-02 16:35 | disposition home or self-care (01) | DRG 194 ==
LOC: ER 15:48 → EDBEDREQTM 20:36 → EDBEDREQ 20:36 → ENRESERV 23:07 → 6WST 10-31 00:24
PROVIDERS: ADMIT Internal Medicine; ATTEND Internal Medicine
DX: I13.0 Hypertensive heart and chronic kidney disease with heart failure and stage 1 through stage 4 chronic kidney disease, or unspecified chronic kidney disease (principal); N17.0 Acute kidney failure with tubular necrosis; E11.22 Type 2 diabetes mellitus with diabetic chronic kidney disease; I27.21 Secondary pulmonary arterial hypertension; E11.649 Type 2 diabetes mellitus with hypoglycemia without coma; I95.9 Hypotension, unspecified; E83.39 Other disorders of phosphorus metabolism; E87.8 Other disorders of electrolyte and fluid balance, not elsewhere classified; E87.6 Hypokalemia; I50.23 Acute on chronic systolic (congestive) heart failure; Z95.0 Presence of cardiac pacemaker; E83.42 Hypomagnesemia; I31.3 Pericardial effusion (noninflammatory); E03.9 Hypothyroidism, unspecified; K59.00 Constipation, unspecified; R94.31 Abnormal electrocardiogram [ECG] [EKG]; D50.9 Iron deficiency anemia, unspecified; N18.9 Chronic kidney disease, unspecified; K62.89 Other specified diseases of anus and rectum; I42.0 Dilated cardiomyopathy; R74.0 Nonspecific elevation of levels of transaminase and lactic acid dehydrogenase [LDH]; E80.6 Other disorders of bilirubin metabolism; Z79.899 Other long term (current) drug therapy; Z79.84 Long term (current) use of oral hypoglycemic drugs; Z90.49 Acquired absence of other specified parts of digestive tract; Z90.710 Acquired absence of both cervix and uterus; Z85.41 Personal history of malignant neoplasm of cervix uteri
CPT/HCPCS: 36415; 71045; 74018; 80048; 80053; 80061; 80305; 80320; 81003; 82728; 82962; 83036; 83540; 83550; 83735; 83880; 84100; 84443; 84484; 85025; 90732; 93005; 93306; 94640; 99285; J1650; J2270; J2405; J3480; J7060; G0480

== ENCOUNTER → 2019-12-04 | Outpatient (CLI) | payer MEDICAID ==
[~2019-12-04] MED LIST changes: +ALBU18HF2 IH; +CALC-25 PO; +CITR473S4 PO; +CYCL10TA7 MT; +CYCL10TA7 PO; +ERGO500013 PO; +FERR325T6 MT; +FURO-151 MT; -FURO-152 MT; +FURO20TA4 PO; +IPRA3AMP9 HHN; +LACT10SO30 MT; -LEVO25TA7 MT; +LEVO25TA7 PO; +LEVO50TA8 MT; -LINA1TAB5 MT; +POTA10CA42 MT; -POTA20TA82 MT; +PRAV40TA58 MT; +QUET300T2 PO; -SACU1TAB MT; +SACU1TAB7 MT; +SERT100T MT
== END | disposition home or self-care (01) ==
LOC: LAB 08:29
PROVIDERS: ATTEND Internal Medicine Gastroenterology
DX: Z01.818 Encounter for other preprocedural examination (principal); Z11.59 Encounter for screening for other viral diseases
CPT/HCPCS: U0003-CS

== ENCOUNTER → 2019-12-06 | Day surgery (SDC) | payer MEDICAID ==
[~2019-12-06] VITALS: Ht 157.5 cm; Wt 70.3 kg
[~2019-12-06] MED LIST changes: +HYDROMORPHONE HCL/PF 2MG/ML CPJ IV PRN; +LABETALOL 5MG/ML SYR 20 MG/4 ML SYRINGE IV PRN; +LIDOCAINE HCL 1% 20ML VIAL (Pyxis) INJ ONE; +MEPERIDINE HCL/PF 25MG/ML CPJ IV PRN; +ONDANSETRON HCL 4MG/2ML INJ IV PRN; +PROPOFOL 200MG/20ML VIAL IV ONE; +SODIUM CHLORIDE 0.9% 1,000 ML IV SCH
== END | disposition home or self-care (01) ==
LOC: OR 08:31
PROVIDERS: ATTEND Internal Medicine Gastroenterology
DX: R63.4 Abnormal weight loss (principal); D50.9 Iron deficiency anemia, unspecified; K44.9 Diaphragmatic hernia without obstruction or gangrene; K31.89 Other diseases of stomach and duodenum; K29.70 Gastritis, unspecified, without bleeding; I50.9 Heart failure, unspecified; I11.0 Hypertensive heart disease with heart failure; E03.9 Hypothyroidism, unspecified; E11.9 Type 2 diabetes mellitus without complications; K59.00 Constipation, unspecified; I42.0 Dilated cardiomyopathy; Z95.810 Presence of automatic (implantable) cardiac defibrillator; Z79.82 Long term (current) use of aspirin; Z79.84 Long term (current) use of oral hypoglycemic drugs; Z79.899 Other long term (current) drug therapy; Z98.890 Other specified postprocedural states; Z87.891 Personal history of nicotine dependence
CPT/HCPCS: 43239; 45378; 82962; 88305; 88312; 88313; 93005; J2704; J3490

== ENCOUNTER → 2020-01-01 | Outpatient (CLI) | payer MEDICAID ==
[~2020-01-01] MED LIST changes: -CYCL10TA7 MT; -FERR325T6 MT; -FURO-151 MT; -HYDROMORPHONE HCL/PF 2MG/ML CPJ IV PRN; -LABETALOL 5MG/ML SYR 20 MG/4 ML SYRINGE IV PRN; -LEVO50TA8 MT; -LIDOCAINE HCL 1% 20ML VIAL (Pyxis) INJ ONE; -MEPERIDINE HCL/PF 25MG/ML CPJ IV PRN; -ONDANSETRON HCL 4MG/2ML INJ IV PRN; -PROPOFOL 200MG/20ML VIAL IV ONE; -QUET300T2 MT; -SODIUM CHLORIDE 0.9% 1,000 ML IV SCH
== END | disposition home or self-care (01) ==
LOC: LAB 13:35
PROVIDERS: ATTEND Internal Medicine Gastroenterology
DX: Z01.818 Encounter for other preprocedural examination (principal); Z11.59 Encounter for screening for other viral diseases
CPT/HCPCS: U0003-CS